=== PATIENT | female | born 1995 | race African-American/Black ===

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

== ENCOUNTER 2018-03-12 15:44 | Emergency (ER) | payer OTHER ==
[~2018-03-12] VITALS: Ht 177.8 cm; Wt 83.2 kg
[~2018-03-12 15:44] MED LIST: DOXYCYCLINE HY100 MG PO
[2018-03-12 15:46] VITALS: BP 139/71; PULSE 82; TEMP 98.7
[2018-03-12] MEDS ORDERED: PREDNISONE20 MG PO (16:06)
== END 2018-03-12 16:13 | disposition home or self-care (01) ==
LOC: COL.ER 15:44
DX: L25.9 Unspecified contact dermatitis, unspecified cause (principal); Z79.52 Long term (current) use of systemic steroids

== ENCOUNTER 2018-05-13 22:37 | Emergency (ER) | payer OTHER ==
[~2018-05-13 22:37] MED LIST changes: +PREDNISONE20 MG PO
[2018-05-13 22:40] VITALS: BP 129/69; PULSE 67; TEMP 97.9
[2018-05-13] MEDS ORDERED: NEXPLANON68 MG ID (22:42)
== END 2018-05-13 23:11 | disposition home or self-care (01) ==
LOC: COL.ER 22:37
DX: S86.912A Strain of unspecified muscle(s) and tendon(s) at lower leg level, left leg, initial encounter (principal); W08.XXXA Fall from other furniture, initial encounter; Y92.009 Unspecified place in unspecified non-institutional (private) residence as the place of occurrence of the external cause
CPT/HCPCS: L1846